=== PATIENT | female | born 1970 | race Caucasian/White ===

== ENCOUNTER 2019-08-22 08:48 | Emergency (ER) | payer OTHER ==
[~2019-08-22] VITALS: Ht 167.6 cm; Wt 65.8 kg
[2019-08-22] MEDS ORDERED: SERTRALINE HCL100 MG PO (09:01)
[2019-08-22] MEDS ORDERED: MEDROLDOSEPACK PO (10:05)
[2019-08-22] MEDS ORDERED: NORCO 5-325 TA1 EAC1 PO (10:09)
[2019-08-22 10:28] VITALS: BP 96/63
== END 2019-08-22 10:29 | disposition home or self-care (01) ==
LOC: M.ERS 08:48
DX: M77.11 Lateral epicondylitis, right elbow (principal); F17.210 Nicotine dependence, cigarettes, uncomplicated

== ENCOUNTER 2019-09-10 10:42 | Emergency (ER) | payer OTHER ==
[~2019-09-10] VITALS: Ht 167.6 cm; Wt 65.8 kg
[~2019-09-10 10:42] MED LIST: MEDROLDOSEPACK PO; NORCO 5-325 TA1 EAC1 PO; SERTRALINE HCL100 MG PO
[2019-09-10] MEDS ORDERED: MELOXICAM15 MG PO (13:18)
[2019-09-10 13:24] VITALS: BP 109/60
== END 2019-09-10 13:24 | disposition home or self-care (01) ==
LOC: M.ERS 10:42
DX: M77.11 Lateral epicondylitis, right elbow (principal); F41.9 Anxiety disorder, unspecified; F32.9 Major depressive disorder, single episode, unspecified; F17.210 Nicotine dependence, cigarettes, uncomplicated; Z90.710 Acquired absence of both cervix and uterus; Z98.890 Other specified postprocedural states